=== PATIENT | male | born 1985 ===

== ENCOUNTER 2019-05-01 16:38 | Emergency (ER) | payer SELFPAY ==
--- NOTE | 2019-05-02 16:45 | EKG ---
Test Reason : CHEST PRESSURE Blood Pressure : / mmHG Vent. Rate : 073 BPM Atrial Rate : 073 BPM P-R Int : 128 ms QRS Dur : 098 ms QT Int : 376 ms P-R-T Axes : 051 014 055 degrees QTc Int : 414 ms Normal sinus rhythm Normal ECG Confirmed by JOSH GORDON ([id number]), editorial assistant BECKY GERMAN ([id number]) on 05/02/2019 4:45:14 PM Referred By: Confirmed By:JOSH GORDON
== END 2019-05-01 19:08 | disposition home or self-care (01) ==
LOC: ERS 16:38
DX: F41.9 Anxiety disorder, unspecified (principal); Z79.82 Long term (current) use of aspirin; Z79.899 Other long term (current) drug therapy
CPT/HCPCS: 93005